=== PATIENT | female | born 1980 | race Caucasian/White ===

== ENCOUNTER 2023-03-11 15:16 | Emergency (ER) | payer OTHER, SELFPAY ==
[2023-03-11 15:21] VITALS: BP 142/88
[2023-03-11 19:17] VITALS: BMI 25.4
[2023-03-11 19:22] VITALS: BP 153/77
== END 2023-03-11 19:25 | disposition home or self-care (01) ==
LOC: EMR 15:16
PROVIDERS: EMERGENCY PHYSICIAN Emergency Medicine; FAMILY PHYSICIAN Nurse Practitioner Adult Health
DX: R41.82 Altered mental status, unspecified (principal); F41.9 Anxiety disorder, unspecified; Z82.49 Family history of ischemic heart disease and other diseases of the circulatory system; Z83.3 Family history of diabetes mellitus; Z83.49 Family history of other endocrine, nutritional and metabolic diseases
CPT/HCPCS: 99282

== ENCOUNTER → 2024-06-03 08:08 | Outpatient (REF) | payer OTHER, SELFPAY | LOC: HWRAD 08:08 | PROVIDERS: ATTENDING PHYSICIAN Family Medicine; FAMILY PHYSICIAN Nurse Practitioner Adult Health | DX: R10.33 Periumbilical pain (principal) | CPT/HCPCS: 74176 ==

== ENCOUNTER 2024-09-07 23:05 | Emergency (ER) | payer OTHER, SELFPAY ==
[2024-09-07 23:07] VITALS: BP 136/86
[2024-09-08 00:35] VITALS: BMI 29.3
--- NOTE | 2024-09-08 01:56 | ED.GENMED ---
History of Present Illness
General
Chief Complaint: Extremity Pain (non-traumatic)
Time Seen by Provider: 09/08/24 01:56
History of Present Illness
History of Present Illness:
TIME OF INITIAL EVALUATION
- 2 AM
REVIEW OF OLD RECORDS
- The patient was seen on 2 separate days in February of 2023 related to confusion/anxiety
Note:
CHIEF COMPLAINT(S)
Left wrist pain.
HISTORY OF PRESENT ILLNESS
The patient is a 43-year-old female presenting with severe left wrist pain. The pain began suddenly while she was attempting to place an object down on her bedside table. There was no specific injury or fall reported. The patient describes the pain
as excruciating, occurring intermittently with episodes of high intensity (10/10) and causing significant discomfort, 'like making my stomach in knots.' She mentions a high pain tolerance but finds the episodes of pain to be uncontrollable and
severe. The pain is described as sharp and localized primarily to the wrist. There is also mention of neck discomfort exacerbated by leaning back. The patient denies any tingling or szxm-kmg-ddisojv sensations in the arm. Flexing the wrist seems to
worsen the pain. She has a history of unusual interactions with steroid medications. No medications were taken prior to evaluation due to uncertainty about their potential efficacy for this pain.
PHYSICAL EXAM
-General: Well appearing in no distress
-HEENT: Moist oral mucosa
-Neurologic: Excellent strength all extremities, no obvious coordination deficits
-Psychiatric: Appropriate mental status, normal insight and judgement
-Extremities: The patient has decreased active range of motion into flexion and extension at the left wrist, of note the patient had rather dramatic increase in pain with attempted flexion at the left wrist, there is no deformity, no soft tissue
swelling
-Skin: No rash, no lesions
PLAN
- Order an X-ray of the left wrist to assess for any underlying structural abnormalities.
- Administer a Toradol (ketorolac) injection for pain relief.
- Provide a splint for wrist immobilization.
- Consider further evaluation if symptoms persist or worsen.
- Patient prefers to hold off on steroids given prior reactions in the past
DIFFERENTIAL DIAGNOSIS
The Differential Diagnosis includes, in no particular order and is not limited to:
1. Wrist sprain
2. Carpal tunnel syndrome
3. Tendinitis
4. Fracture
5. Nerve compression syndrome
6. De Quervains tenosynovitis
7. Rheumatoid arthritis
8. Osteoarthritis
9. Gout
10. Cervical radiculopathy
RADIOLOGY
- X-ray left wrist obtained�no acute abnormality
EKG
- Not indicated
LABS
- Not indicated
UPDATE
- Will give splint, Toradol and check x-ray
ASSESSMENT
The patient presents with severe left wrist pain, exhibiting decreased range of motion. Examination reveals no cysts or signs of infection. Pain is not believed to originate from the neck.
DISPOSITION
Patient discharged with referral to a local orthopedic doctor for further evaluation.
EMERGENCY TREATMENTS ADMINISTERED
Administered Toradol for pain relief.
PLAN
- Provide contact information for a local orthopedic doctor for follow-up.
- Recommend the use of NSAIDs (e.g., Ibuprofen) as an anti-inflammatory medication.
- Advise the patient to use a splint for immobilization and pain relief.
MEDICATION RECONCILIATION
- Administered Toradol injection for pain relief.
- Recommended NSAIDs (Ibuprofen 200 mg) for anti-inflammatory purposes.
PATHOLOGIES TO CONSIDER
- Wrist sprain
- Tendinitis
- Fracture
- Carpal tunnel syndrome
- De Quervains tenosynovitis
- Cervical radiculopathy
INDEPENDENT REVIEW OF LABS AND INTERPRETATION OF TESTS
- My independent interpretation of the X-ray is normal, with no bone abnormalities detected.
Past History
Past History
ED Past Medical History: Other (varicose veins); Negative Asthma, HTN, Hypercholesterolemia or NIDDM
ED Past Surgical History: Other ([place] teeth/umbilical hernia)
Social History
Tobacco: Non-smoker
Alcohol: None
Drug: None
Personal:
Living: with family
Family History
Family History: Other (Coronary disease, diabetes, hyperlipidemia)
Phy Exam
Physical Exam
Physical Exam:
See HPI
Course
Orders/Labs/Results
Orders:
Orders
09/08/24 02:06
Splints/Slings/Crut- Treatment ONCE
Crutches: No
Location: Left
Type of Splint: [place] Wrist
Ketorolac [Toradol] 30 mg IM NOW STA
CR Wrist - Left Min 3 Views Urgent
Comment:
Reason For Exam: pain
Vital Signs
Initial and Last Documented VS:
Initial Vital Signs
Temp Pulse Resp BP Pulse Ox
36.6 C 68 20 136/86 98
09/07/24 23:07 09/07/24 23:07 09/07/24 23:07 09/07/24 23:07 09/07/24 23:07
Last Documented Vital Signs
Temp Pulse Resp BP Pulse Ox
36.6 C 68 20 136/86 98
09/07/24 23:07 09/07/24 23:07 09/07/24 23:07 09/07/24 23:07 09/08/24 01:58
*Pulse Oximetry
SaO2: 98
Oxygen Mode of Delivery: Room air
Patient hypoxic: no
*Critical Care Note
Total Time (30-74mins, 75-104mins- exclusive of procedures): Not Applicable
ED Attending Note
-
Portions of this chart may have been created with voice recognition software.� Occasional wrong word or��sound alike� substitutions may have occurred due to the inherent limitations of voice recognition software.
Discharge Plan
Departure
Patient Disposition: Home (Routine Discharge)
Date of Disposition: 09/08/24
Time of Disposition: 03:00
Patient with high blood pressure during this ER visit?: Yes
Discharge Problem:
Arthralgia
Prescriptions:
No Action
Vitamins Tablet Tab
3 tab PO HSPRN PRN (Reason: supplement)
cholecalciferol (vitamin D3) 25 mcg (1,000 unit) Tablet
25 mcg PO HSPRN PRN (Reason: supplement)
[place] 3 Fish Oil 900-1,400 mg Capsule,Delayed Release(Dr/Ec)
2 cap PO HSPRN PRN (Reason: supplement)
Blood Builder Vitamin
1 tab PO HSPRN PRN (Reason: supplement)
Referrals:
Rachael Singh I., DO [Active, Orthopedics]
Nathalia Guzman CRNP [Family Provider, General]
Activity Restrictions/Additional Instructions:
The cause of your symptoms is unclear. I recommend 3-4 gfdd-qin-npzgfkn ibuprofen (Motrin) every 8 hours with food for a few days. Return here if worse. Follow-up with Dr. Singh.
Interventions
Interventions:
*Risk Screen - Suicide Last Done: 09/07/24 23:07
*General Assessment Last Done: 09/08/24 00:35
*Neglect/Abuse Screening Last Done: 09/07/24 23:07
*ED- Fall Risk Assessment Last Done: 09/08/24 00:35
*ED COVID-19 Vaccine History Last Done: 09/08/24 00:35
ED-Musculoskeletal Assessment Last Done: 09/08/24 00:35
ED-Peripheral Vascular Assessment Last Done: 09/08/24 00:35
Discharge Date and Time
Print Language: DOMINICAN
[2024-09-08] MEDS: TORADOL 30 MG IM (02:12)
== END 2024-09-08 03:12 | disposition home or self-care (01) ==
LOC: EMR 23:05
PROVIDERS: EMERGENCY PHYSICIAN Emergency Medicine; FAMILY PHYSICIAN Nurse Practitioner Adult Health
DX: M25.532 Pain in left wrist (principal); Z82.49 Family history of ischemic heart disease and other diseases of the circulatory system; Z83.3 Family history of diabetes mellitus; Z83.49 Family history of other endocrine, nutritional and metabolic diseases
CPT/HCPCS: 99283; 29125; 73110

== ENCOUNTER → 2024-10-24 08:51 | Outpatient (REF) | payer OTHER, SELFPAY | LOC: EMG 08:51 | PROVIDERS: ATTENDING PHYSICIAN Physical Medicine & Rehabilitation; FAMILY PHYSICIAN Nurse Practitioner Adult Health | DX: R20.0 Anesthesia of skin (principal) | CPT/HCPCS: 95886; 95911 ==

== ENCOUNTER 2024-12-05 11:34 | Emergency (ER) | payer OTHER, SELFPAY ==
[2024-12-05 11:45] VITALS: BP 141/84
[2024-12-05 12:12] VITALS: BMI 29.2
[2024-12-05 13:41] VITALS: BP 107/79
--- NOTE | 2024-12-05 15:01 | ED.GENMED ---
History of Present Illness
General
Chief Complaint: Headache
Time Seen by Provider: 12/05/24 12:32
Nursing documentation reviewed up to this point in time: agreed with
History of Present Illness
History of Present Illness:
44-year-old female referred to the ER from urgent care for further evaluation of headaches. Patient has experienced intermittent headaches through the majority of her adult life. She states that this current headache started 3 days ago and has
been waxing and waning in intensity. She describes it to be mainly on the left side of her head. No associated vomiting. She states that she has been using Excedrin Migraine with some improvement in her symptoms. No syncope. No focal weakness.
She states that she sometimes has a visual disturbance associated with her headaches. She has never seen neurology. She also has a rash on her forearms and her left eye which she believes is related to poison mariia. She states that in the past when
she had poison oak she was given a steroid taper and had a significant neurologic reaction to the steroid.
Past History
Past History
ED Past Medical History: Other (varicose veins); Negative Asthma, HTN, Hypercholesterolemia or NIDDM
ED Past Surgical History: Other ([place] teeth/umbilical hernia)
Social History
Tobacco: Non-smoker
Alcohol: None
Drug: None
Personal:
Living: with family
Family History
Family History: Other (Coronary disease, diabetes, hyperlipidemia)
Review of Systems
Review of Systems
Allergies reviewed?: Yes
Phy Exam
Physical Exam
Physical Exam:
Patient is awake, alert, appears in no acute distress, mucous membranes moist, conjunctiva pink, no facial asymmetry noted, tongue is midline, no photophobia, PERRL, EOMI, no dysdiadochokinesia, no ataxia, no pronator drift, GCS is 15, moving all
extremities symmetrically without focal deficit, linear vesicular rash present left forearm, there is a patch of vesicles present on the left eyelid also, no increased work of breathing
Course
Orders/Labs/Results
Orders:
Orders
12/05/24 12:32
CT Head W/o Iv Contrast Urgent
Comment:
Reason For Exam: headache
I reviewed CT head result which did not show any acute process
Vital Signs
Initial and Last Documented VS:
Initial Vital Signs
Temp Pulse Resp BP Pulse Ox
98.5 F 70 16 141/84 97
12/05/24 11:45 12/05/24 11:45 12/05/24 11:45 12/05/24 11:45 12/05/24 11:45
Last Documented Vital Signs
Temp Pulse Resp BP Pulse Ox
98.5 F 80 16 107/79 100
12/05/24 11:45 12/05/24 13:41 12/05/24 13:41 12/05/24 13:41 12/05/24 15:02
MDM/Problems Addressed
Differential Diagnosis Includes:
Differential diagnosis to consider but not limited to migraines, intracranial hemorrhage, intracranial mass, along with other etiologies considered
*Radiology
Radiology exam reviewed: radiology read reviewed
*Pulse Oximetry
SaO2: 100
Oxygen Mode of Delivery: Room air
Patient hypoxic: no
*Critical Care Note
Total Time (30-74mins, 75-104mins- exclusive of procedures): Not Applicable
Update Note
Update Note:
I discussed with patient continued supportive treatment for contact dermatitis likely poison mariai. I discussed with patient normal CT head. I discussed with patient benefit of follow-up with neurology given she is describing frequent similar
headaches which likely reflect migraines. Patient is given prescription ibuprofen and Reglan to use as needed for her migraine symptoms. She expressed understanding of discharge plan and had no questions prior to leaving the department.
ED Attending Note
-
Portions of this chart may have been created with voice recognition software.� Occasional wrong word or��sound alike� substitutions may have occurred due to the inherent limitations of voice recognition software.
Discharge Plan
Departure
Patient Disposition: Home (Routine Discharge)
Date of Disposition: 12/05/24
Time of Disposition: 14:20
Patient with high blood pressure during this ER visit?: No
Discharge Problem:
Migraine
Instructions: Migraines (DC)
Prescriptions:
New
ibuprofen 600 mg tablet
600 mg PO Q8H PRN (Reason: Pain) Qty: 20 0RF
metoclopramide HCl [Reglan] 10 mg tablet
10 mg PO Q8HPRN PRN (Reason: nausea and vomiting) Qty: 9 0RF
No Action
Vitamins Tablet Tab
3 tab PO HSPRN PRN (Reason: supplement)
cholecalciferol (vitamin D3) 25 mcg (1,000 unit) Tablet
25 mcg PO HSPRN PRN (Reason: supplement)
[place] 3 Fish Oil 900-1,400 mg Capsule,Delayed Release(Dr/Ec)
2 cap PO HSPRN PRN (Reason: supplement)
Blood Builder Vitamin
1 tab PO HSPRN PRN (Reason: supplement)
Referrals:
Dontrell Painter MD [Active, Neurology] - Next open appointment
Nathalia Guzman CRNP [Family Provider, General]
Activity Restrictions/Additional Instructions:
Encourage fluids. Please use ibuprofen and Reglan as prescribed as needed for your headache. Please contact neurology office to schedule appointment for outpatient evaluation as soon as possible. Return to the ER for any concerns.
Interventions
Interventions:
*Risk Screen - Suicide Last Done: 12/05/24 11:45
*General Assessment Last Done: 12/05/24 12:09
*Neglect/Abuse Screening Last Done: 12/05/24 12:09
*ED- Fall Risk Assessment Last Done: 12/05/24 12:09
*ED COVID-19 Vaccine History Last Done: 12/05/24 12:09
*Nursing Disposition Last Done: 12/05/24 14:30
ED- Neurological Assessment Last Done: 12/05/24 12:11
Discharge Date and Time
Discharge Date/Time: 12/05/24 14:56
Print Language: KHMER
== END 2024-12-05 14:56 | disposition home or self-care (01) ==
LOC: EMR 11:34
PROVIDERS: EMERGENCY PHYSICIAN Emergency Medicine; FAMILY PHYSICIAN Nurse Practitioner Adult Health
DX: G43.909 Migraine, unspecified, not intractable, without status migrainosus (principal); L25.9 Unspecified contact dermatitis, unspecified cause
CPT/HCPCS: 99284; 70450